=== PATIENT | male | born 1955 | race Caucasian/White ===

== ENCOUNTER 2023-06-06 19:52 | Outpatient (OUT) | payer MEDICARE, OTHER, SELFPAY | END 2023-06-06 19:53 | disposition home or self-care (01) | LOC: SLEEP 19:53 | PROVIDERS: PCP Nurse Practitioner Family; Visit Provider Nurse Practitioner Family | DX: G47.33 Obstructive sleep apnea (adult) (pediatric) (principal) | CPT/HCPCS: 95811 ==